=== PATIENT | male | born 1955 | race Caucasian/White ===

== ENCOUNTER → 2017-04-07 17:00 | Outpatient (CLI) | payer MEDICAID | END | disposition home or self-care (01) | LOC: D.LABREF 17:00 | DX: R31.21 Asymptomatic microscopic hematuria (principal) ==

== ENCOUNTER → 2017-05-11 09:51 | Outpatient (CLI) | payer MEDICAID | END | disposition home or self-care (01) | LOC: D.CT 09:51 | DX: I73.9 Peripheral vascular disease, unspecified (principal) ==

== ENCOUNTER 2017-06-05 06:31 | Outpatient (CLI) | payer MEDICAID ==
[~2017-06-05] VITALS: Ht 177.8 cm; Wt 72.1 kg
--- NOTE | ~2017-06-05 | HEMODYNAMI ---
PATIENT:FOREIGN SHORT MEDICAL RECORD: [id number] : 51 [id number] ADMISSION DATE: 06/05/17 Generatedon:06/05/201711:24 Patient name: FOREIGN SHORT Patient #: [id number] SSN: : 1955 Date of study: 06/05/2017 Page: Of Hemodynamic Procedure Report Patient Data Patient Demographics Procedure consent was obtained First Name: FOREIGN Gender: Male Last Name: DEJA : 1955 [facility] Initial: CHATO Age: 62 year(s) Patient #: [id number] Race: Unknown Additional ID: [id number] Contact details Address: [address] [place] [address] State: [place] City: [place] Zip code: [address] Admission Admission Data Admission Date: 06/05/2017 Admission Time: 6:31 Procedure Procedure Types Cath Procedure Peripheral Cath Diagnostic Procedure Abd/Extremity Extremities Procedure Description Procedure Date Procedure Date: 06/05/2017 Procedure Start Time: 10:06 Procedure Staff Name Function Lonny Fernandez MD Performing Physician Akash Rodriguez RT Monitor Alma Rosa Lubin RT Scrub Ena aCrballo RN Nurse Cody Vargas Nurse Procedure Data Cath Procedure Fluoroscopy Diagnostic fluoroscopy Total fluoroscopy Time: 6 time: 6 min min Diagnostic fluoroscopy Total fluoroscopy dose: 882 dose: 882 mGy mGy Contrast Material Contrast Material Type Amount (ml) Isovue 300 170 Entry Location Entry Primary Successful Side Size Upsize 1 Upsize Entry Closure [place]den ccessful Closure Location (Fr) (Fr) 2 (Fr) Remarks Device Remarks Femoral Left 5 Fr 6 Fr artery Mid-Length Diagnostic catheters Device Type Used For End Catheter Placement Merit ULTRA BOLUS FLUSH 5Fr 65CM catheter ([id number]) Procedure Medications Medication Administration Route Dosage Versed I.V. 1 mg Fentanyl I.V. 50 mcg Versed I.V. 1 mg Fentanyl I.V. 50 mcg Versed I.V. 1 mg Fentanyl I.V. 50 mcg Heparin Bolus I.V. 5000 units Hydralizine I.V. 20 mg Hemodynamics Rest Heart Rate: 69 (bpm) Snapshots Pre Cath Intra NCS Post Cath Vital Signs Time Heart Resp SPO2 etCO2 NIBP (mmHg) Rhythm Pain Sedation Rate (ipm) (%) (mmHg) Status Level (bpm) 9:57:25 66 9 99 Measuring NSR 0 (11) 10(A) , No pain 9:57:54 64 9 99 35 198/96(158) NSR 0 (11) 10(A) , No pain 10:02:20 66 13 99 188/92(160) NSR 0 (11) 10(A) , No pain 10:07:19 65 15 99 Measuring NSR 0 (11) 10(A) , No pain 10:07:34 66 14 99 36 194/105(165) NSR 0 (11) 10(A) , No pain 10:11:46 68 11 99 36 177/93(141) NSR 0 (11) 10(A) , No pain 10:16:06 67 12 98 36 187/96(139) NSR 0 (11) 10(A) , No pain 10:20:32 70 11 99 37 151/90(120) NSR 0 (11) 10(A) , No pain 10:24:46 70 11 98 38 171/88(140) NSR 0 (11) 10(A) , No pain 10:29:04 76 18 33 158/95(125) NSR 0 (11) 10(A) , No pain 10:33:18 69 6 98 30 154/96(139) NSR 0 (11) 10(A) , No pain 10:37:32 67 7 99 36 166/92(137) NSR 0 (11) 10(A) , No pain 10:41:52 66 7 100 37 159/83(133) NSR 0 (11) 10(A) , No pain 10:46:08 65 8 100 36 174/90(118) NSR 0 (11) 10(A) , No pain 10:50:28 66 9 99 40 158/92(124) NSR 0 (11) 10(A) , No pain 10:54:38 65 10 99 40 163/95(144) NSR 0 (11) 10(A) , No pain 10:58:54 62 11 99 36 180/95(158) NSR 0 (11) 10(A) , No pain 11:03:16 61 11 93 40 184/97(165) NSR 0 (11) 10(A) , No pain 11:06:35 67 11 99 42 176/106(121) NSR 0 (11) 10(A) , No pain 11:08:30 62 10 100 42 177/92(146) NSR 0 (11) 10(A) , No pain 11:12:52 68 13 100 37 175/93(126) NSR 0 (11) 10(A) , No pain 11:17:12 68 11 100 37 172/93(132) NSR 0 (11) 10(A) , No pain 11:21:30 69 10 100 164/95(138) NSR 0 (11) 10(A) , No pain Medications Time Medication Route Dose Verified Delivered Reason Notes Effec tiveness by by 10:07:51 Versed I.V. 1 mg Lonny Sutherland for sedation Haris Fernandez RN, MD 10:08:15 Fentanyl I.V. 50 Lonny Sutherland for sedation mcg Haris Fernandez RN, MD 10:13:29 Versed I.V. 1 mg Lonny Sutherland for sedation Haris Fernandez RN, MD 10:13:39 Fentanyl I.V. 50 Lonny Mobleyody for sedation mcg Haris Fernandez RN, MD 10:27:34 Versed I.V. 1 mg Lonny Ena for sedation Haris Fernandez RN, MD 10:27:43 Fentanyl I.V. 50 Lonny Sutherland for sedation mcg Haris Fernandez RN, MD 10:36:58 Heparin I.V. 5000 Lonny Sutherland Bolus units Haris Fernandze RN, MD 11:02:54 Hydralizine I.V. 20 mg Lonny Ross for Sam Fernandez MD Procedure Log Time Note 9:36:53 Akash Rodriguez RT (R) (CV) sent for patient. Start room use. 9:36:58 Time tracking: Regular hours 9:37:14 Plan of Care:Hemodynamics will remain stable., Cardiac rhythm will remain stable., Comfort level will be maintained., Respiratory function will remain adequate., Patient/ family verbilizes understanding of procedure., Procedure tolerated without complication., Recovers from procedure without complications.. 9:37:19 Patient received from Outpatients to IR Alert and oriented. Tansferred to table in Supine position. 9:37:21 Correct patient and procedure confirmed by team. 9:37:22 Signed procedure consent form obtained from patient. 9:37:23 ECG and BP/O2 sat monitors applied to patient. 9:37:24 Full Disclosure recording started 9:37:25 - 9:37:28 H&P Date Dictated: 06/05/2017 H&P Addendum completed by physician on day of procedure. (MUST COMPLETE FOR ALL OUTPATIENTS). 9:37:30 Pre-procedure instructions explained to patient. 9:37:30 Pre-op teaching completed and patient verbalized understanding. 9:37:32 Family in waiting room. 9:37:36 Patient NPO since Midnight. 9:37:40 Use device set IR Diagnostic 9:37:41 Bag Decanter () opened to sterile field. 9:37:42 ACIST Manifold (63639) opened to sterile field. 9:37:43 ACIST Hand Control (88956) opened to sterile field. 9:37:44 Sterile Angiographic Pack opened to sterile field. 9:37:44 ACIST Syringe (90304) opened to sterile field. 9:41:58 Is the patient allergic to Iodine/contrast media? No. 9:41:59 Is patient on blood thinner?No 9:42:01 Patient diabetic? No. 9:42:03 - 9:42:04 ----Pre-sedation anethsthesia assessment.---- 9:42:08 Previous problem with sedation/anesthesia? No ? 9:42:12 Snore? No 9:42:13 Sleep apnea? No 9:42:15 Deviated septum? No 9:42:16 Opens mouth fully? Yes 9:42:18 Sticks out tongue? Yes 9:42:21 Airway obstruction? No ? 9:42:25 Dentures? Yes out 9:42:30 Pre procedure: right dorsailis pedis pulse Doppler 9:42:35 Pre procedure: left dorsailis pedis pulse 1+ Palpable, but thready & weak; easily obliterated 9:42:39 Pre procedure: right posterior tibial pulse Doppler 9:42:42 Pre procedure: left posterior tibial pulse Doppler 9:42:49 Patient pain scale 0/10 no pain. 9:45:33 IV patent on arrival in right antecubital with 0.9% NaCl at [facility]. 9:45:37 Sharps counted by scrub and verified by R.N. 9:45:37 Alarms reviewed by R. N. 9:45:49 Bilateral groins area was prepped with chlora-prep and draped in steril e fashion 9:55:36 Vital chart was started 9:56:01 Baseline sample Acquired. 10:05:17 Physician arrived 10:05:18 --------ALL STOP TIME OUT------ 10:05:18 Final Timeout: patient, procedure, and site verified with staff and physician. All members of the team are in agreement. 10:05:32 Bilateral groins site verified by team. 10:05:44 Sedation plan: IV Moderate Sedation Medication:Versed, Fentanyl 10:06:00 Procedure started. 10:06:05 Local anesthetic to left femerol artery with Lidocaine 1% by Lonny Fernandez MD.INITIAL ACCESS ONLY 10:06:34 MARSHALL 260 wire (E86039) opened to sterile field. 10:06:37 A Merit ULTRA BOLUS FLUSH 5Fr 65CM catheter ([id number]) was advanced over the wire and used for . 10:06:39 TUBING Contrast Injection High Pressure (NJM820L) opened to sterile field. 10:06:39 DOC .035 wire (L51863) opened to sterile field. 10:06:41 Micropuncture VSI 4FR kit opened to sterile field. 10:06:42 SHEATH 5FR [place] (EVN503) opened to sterile field. 10:06:54 A 5 Fr sheath was inserted into the Left Femoral artery 10:07:51 Versed 1 mg I.V. was administered by Ena Carballo RN; for sedation; 10:08:15 Fentanyl 50 mcg I.V. was administered by Ena Carballo RN; for sedation ; 10:13:29 Versed 1 mg I.V. was administered by Ena Carballo RN; for sedation; 10:13:39 Fentanyl 50 mcg I.V. was administered by Ena Carballo RN; for sedation ; 10:22:36 TORQUE DEVICE PLASTIC .038 ( TD01) opened to sterile field. 10:23:30 GLIDE WIRE ANGLE 180cm (RX8084) opened to sterile field. 10:23:53 GLIDE CATHETER 5FR ANGLED 65cm (CG507) opened to sterile field. 10:27:15 Sheath upsized to a 6 Fr Mid-Length. 10:27:34 Versed 1 mg I.V. was administered by Ena Carballo RN; for sedation; 10:27:43 Fentanyl 50 mcg I.V. was administered by Ena Carballo RN; for sedation ; 10:28:47 SHEATH 6FR [place] (RSR01) opened to sterile field. 10:31:03 INFLATOR BasixTOUCH (HH0733) opened to sterile field. 10:36:58 Heparin Bolus 5000 units I.V. was administered by Ena Carballo RN; ; 10:41:18 Inflation number: 1 A POWERFLEX PRO 3.0 x 40 x 80cm balloon ([id number]) was prepped and advanced across the Undefined1, then inflated 10:48:43 SMART 10 X 40 X 120 stent ([id number]) was deployed across Undefined1 . 10:54:19 Inflation number: 2 A POWERFLEX PRO 6.0 x 40 x 80cm balloon ([id number]) was prepped and advanced across the Undefined1, then inflated 10:55:57 Inflation number: 3 A POWERFLEX PRO 8.0 x 40 x 80cm balloon ([id number]) was prepped and advanced across the Undefined1, then inflated 10:58:18 SHEATH 6FR [place] (YNR886) opened to sterile field. 11:02:54 Hydralizine 20 mg I.V. was administered by Cody Vargas; for hypertension; 11:06:34 EXOSEAL 6Fr (EX600) opened to sterile field. 11:12:51 Procedure ended.(Physican Out) 11:14:13 Fluoroscopy time 06.00 minutes. 11:14:17 Fluoroscopy dose: 882 mGy 11:14:17 Flurop Dose total: 882 11:14:32 Contrast amount:Isovue 300 170ml. 11:14:34 Sharps counted by scrub and verified by R.N. 11:14:36 Insertion/operative site no bleeding no hematoma. 11:14:39 Post-op/insertion site Left Femoral artery dressed using a 4 x 4 and Tegaderm. 11:14:54 Post left femerol artery:stable 11:14:59 Post procedure instruction explained to patient.Patient verbalizes understanding. 11:15:00 Procedure and supply charges have been captured, reviewed, submitted an d are correct. 11:24:25 Report given to Outpatients. 11:24:29 Patient transfered to Outpatients with Stretcher. 11:24:55 Vital chart was stopped Intervention Summary Intervention Notes Time ActionType Lesion and Equipment Action# Pressure Duration Attributes Used 10:41:18 Inflate Undefined1 POWERFLEX 1 0 00:00 balloon PRO 3.0 x 40 x 80cm balloon ([id number]) 10:48:43 Deploy self Undefined1 SMART 10 X 1 expanding 40 X 120 stent stent ([id number]) 10:54:19 Inflate Undefined1 POWERFLEX 2 0 00:00 balloon PRO 6.0 x 40 x 80cm balloon ([id number]) 10:55:57 Inflate Undefined1 POWERFLEX 3 0 00:00 balloon PRO 8.0 x 40 x 80cm balloon ([id number]) Device Usage Item Name Manufacture Quantity Catalog Number [facility] Lot# / Charge Number Stock Stock Serial# Code Bag Decanter Microtek 1 [id number] 49362 179010 5 () Medical Inc. ACIST Manifold Acist 1 12633 541055 117467 694105 5 (02248) Medical Systems Inc ACIST Hand Acist 1 73614 502675 728358 997590 5 Control Medical (47997) Systems Inc Sterile Cardinal 1 [id number] 372112 516267 5 Angiographic Health Pack ACIST Syringe Acist 1 48420 005397 223144 110061 20 (98976) Medical Systems Inc MARSHALL 260 wire Cook Medical 1 R97378 941075 151793 5 9937104 (M52011) Merit ULTRA Merit 1 [id number] 998903 687204 5 BOLUS FLUSH Medical 5Fr 65CM catheter ([id number]) TUBING Merit 1 SAR607M 264496 087226 148088 5 Contrast Medical Injection High Pressure (EIZ299Z) DOC .035 wire Cook Medical 1 Z88615 585050 432617 5 2757591 (O49956) Micropuncture VSI VASCULAR 1 7266V 797522 742435 5 VSI 4FR kit SOLUTIONS SHEATH 5FR Terumo 1 IPQ543 845434 137637 097441 40 [place] (OGW773) TORQUE DEVICE [place] 1 TD01 170538 515216 593906 5 PLASTIC .038 ( Scientific TD01) GLIDE WIRE Terumo 1 UK4665 843022 367779 565458 5 ANGLE 180cm (BF4944) GLIDE CATHETER Terumo 1 CG507 146874 501319 5 5FR ANGLED 65cm (CG507) SHEATH 6FR Terumo 1 RSR01 073609 30304 749442 5 Destination (RSR01) INFLATOR Merit 1 AR4590 110053 224444 920375 5 [id number] [facility] (SZ9287) POWERFLEX PRO Cardinal 1 [id number] 109182 868134 529795 5 3.0 x 40 x Health 80cm balloon ([id number]) SMART 10 X 40 Cardinal 1 [id number] 607556 703286 5 [id number] X 120 stent Health ([id number]) POWERFLEX PRO Cardinal 1 [id number] 426218 403949 088382 5 6.0 x 40 x Health 80cm balloon ([id number]) POWERFLEX PRO Cardinal 1 [id number] 003314 887649 870831 5 8.0 x 40 x Health 80cm balloon ([id number]) SHEATH 6FR Terumo 1 QTI018 079961 948351 889736 40 [place] (CCA370) EXOSEAL 6Fr Cardinal 1 EX600 181771 870376 171184 10 [id number] (EX600) Health Signature Audit [place] Stage Time Signature Unsigned Intra-Procedure 06/05/2017 Akash 11:24:52 AM [place] RT (R) (CV) Signatures Monitor : Akash Signature : Michael RT Date : Time : [facility] [address] [place] [address]
[2017-06-05] MEDS ORDERED: METOPROLOL TART50 MG PO (07:08)
[2017-06-05] MEDS ORDERED: MOBIC7.5 MG PO (07:09)
[2017-06-05 07:20] VITALS: Ht 177.8 cm; Wt 72.1 kg
[2017-06-05 08:10] LABS: BASOPHILS 0.4 % (0-2); CALC OSMOLALITY 265 mosm/kg (275-300); CALCIUM 8.4 mg/dL (8.5-10.1); CARBON DIOXIDE 29.3 mmol/L (21.0-32.0); CHLORIDE - SERUM 99 mmol/L (98-107); CREATININE - SERUM 0.9 mg/dL (0.6-1.3); GLUCOSE 95 mg/dL (74-106); HEMATOCRIT 53.3 % (42.0-54.0); HEMOGLOBIN 18.1 g/dL (13.5-17.5); IMMATURE GRANULOCYTES 0.2 % (0-5); LYMPHOCYTES 29.8 % (15-50); MCV 91.3 fL (80.0-100.0); MEAN PLATELET VOLUME 11.7 fL (7.4-10.4); MONOCYTES 9.6 % (2-11); PLATELET COUNT 185 10x3/uL (130-400); POTASSIUM - SERUM 3.9 mmol/L (3.5-5.1); RBC 5.84 10x6/uL (4.20-6.10); RDW 13.9 % (11.5-14.5); SODIUM 134 mmol/L (136-145); UREA NITROGEN 7 mg/dL (7-18); WBC 8.1 10x3/uL (4.8-10.8); eGFR NON AFRICAN AMERICAN 90 mL/min (90-120)
[2017-06-05 08:33] LABS: INR 1.02 (0.85-1.17)
== END 2017-06-05 17:10 | disposition home or self-care (01) ==
LOC: D.OPS 06:31 → D.RAD 09:00 → D.OPS 09:00
PROVIDERS: General Practice
DX: I70.211 Atherosclerosis of native arteries of extremities with intermittent claudication, right leg (principal); Z01.812 Encounter for preprocedural laboratory examination